=== PATIENT | female | born 1990 | race Caucasian/White ===

== ENCOUNTER 2016-09-10 18:45 | Emergency (ER) | payer OTHER ==
[2016-09-10 18:51] VITALS: BMI 35.7
[2016-09-10 18:54] VITALS: TEMP 98.4
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
[2016-09-10 19:52] VITALS: BP 124/80; PULSE 70; RESP 16; O2SAT 99
== END 2016-09-10 19:50 | disposition home or self-care (01) ==
LOC: ED 18:45
DX: M79.602 Pain in left arm (principal)
CPT/HCPCS: 96372; 99285; J1885

== ENCOUNTER 2017-10-13 15:11 | Emergency (ER) | payer OTHER ==
[2017-10-13 15:11] VITALS: BMI 35.7
--- NOTE | 2017-10-13 16:43 | ED PDOC ---
Arrival/HPI - General Chief Complaint: Female Genitourinary Time Seen by Provider: 10/13/17 16:20 Historian: Patient - History of Present Illness Narrative History of Present Illness (Text): 10/13/17 16:39 19-year-old female presents today with dysuria and urinary frequency with occasional hematuria. Patient denies fevers or chills. She denies nausea vomiting diarrhea or constipation. She denies any back pain. She is complaining of suprapubic pressure with the urge to urinate. She denies abdominal pain. Patient states she's a history of urinary tract infections and has been taking cranberry juice and AZO with minimal improvement. no vaginal bleeding or discharge. Symptom Onset: Gradual Symptom Course: Worsening Quality: Aching, Pressure, Burning Severity Level: Mild Past Medical History - Provider Review Nursing Documentation Reviewed: Yes - Travel History Have you recently traveled outside [place] w/in the past 3 mons?: No - Tetanus Immunization Tetanus Immunization: Unknown - Endocrine/Metabolic Hx Endocrine Disorders: Yes (pre-diabetic) - Genitourinary/Gynecological Hx Genitourinary Disorders: Yes Hx Urinary Tract Infection: Yes - Psychiatric Hx Substance Use: No - Surgical History Hx Abdominal Aortic Aneurysm Repair: No - Anesthesia Hx Anesthesia: No Family/Social History - Physician Review Nursing Documentation Reviewed: Yes Family/Social History: Unknown Family HX Smoking Status: Current Some Days Smoker Hx Alcohol Use: Yes Frequency of alcohol use: Socially Hx Substance Use: No Allergies/Home Meds Allergies/Adverse Reactions: Allergies No Known Allergies Allergy (Verified 10/13/17 16:17) Home Medications: Home Meds Medication Instructions Recorded Confirmed Norgestimate-Ethinyl Estradiol 1 tab PO DAILY 09/10/16 09/10/16 [Tri-Sprintec 28 35 Mcg-0.25 mg] Review of Systems - Review of Systems Constitutional: absent: Fatigue, Fevers Respiratory: absent: SOB, Cough Cardiovascular: absent: Chest Pain, Palpitations Gastrointestinal: absent: Abdominal Pain, Constipation, Diarrhea, Nausea, Vomiting Genitourinary Female: Dysuria, Frequency, Hematuria. absent: Vaginal Bleeding, Vaginal Discharge Musculoskeletal: absent: Arthralgias, Back Pain, Neck Pain Skin: absent: Rash, Pruritis Neurological: absent: Headache, Dizziness Psychiatric: absent: Anxiety, Depression Physical Exam Vital Signs Reviewed: Yes Vital Signs Temp Pulse Resp BP Pulse Ox 10/13/17 15:11 98.2 F 70 18 128/78 100 Temperature: Afebrile Blood Pressure: Normal Pulse: Regular Respiratory Rate: Normal Appearance: Positive for: Well-Appearing, Non-Toxic, Comfortable Pain Distress: None Mental Status: Positive for: Alert and Oriented X 3 - Systems Exam Head: Present: Atraumatic Mouth: Present: Moist Mucous Membranes Respiratory/Chest: Present: Clear to Auscultation Cardiovascular: Present: Regular Rate and Rhythm Abdomen: Present: Normal Bowel Sounds. No: Tenderness, Distention, Peritoneal Signs, Rebound, Guarding Back: Present: Normal Inspection. No: CVA Tenderness, Midline Tenderness, Paraspinal Tenderness Upper Extremity: Present: Normal ROM Lower Extremity: Present: Normal ROM Neurological: Present: GCS=15, Speech Normal Skin: Present: Warm, Dry, Normal Color Psychiatric: Present: Alert, Oriented x 3 Medical Decision Making ED Course and Treatment: 10/13/17 16:38 Patient is nontoxic well-appearing in no distress with stable vital signs Urinalysis: + leukocytes, + bacteria Urine culture: pending keflex and pyridium given pO advised follow up with the primary care physician within the next 2 days. advised immediate return if symptoms worsen,persist or if new symptoms develop. Patient verbalizes understanding of discharge instructions and need for immediate followup. all aspects of this case were discussed the attending of record. Impression: Urinary tract infection Motrin every 6 hours as needed for pain Keflex; 1 capsule twice daily x 7 days Pyridium one tablet twice daily x3 days Followup with primary care physician within the next 2 days Follow up with the urologist for the next 2 days Return if symptoms worsen persist or if new symptoms develop - Lab Interpretations Lab Results: Lab Results 10/13/17 16:24: Urine Color Yellow, Urine Appearance Sl cloudy, Urine pH 6.0, Ur Specific [place] <= 1.005, Urine Protein Negative, Urine Glucose (UA) Negative, Urine Ketones Negative, Urine Blood Small H, Urine Nitrate Negative, Urine Bilirubin Negative, Urine Urobilinogen 0.2, Ur Leukocyte Esterase Large H , Urine RBC Pending, Urine WBC Pending Disposition/Present on Arrival - Present on Arrival Any Indicators Present on Arrival: No History of DVT/PE: No History of Uncontrolled Diabetes: No Urinary Catheter: No History of Decub. Ulcer: No History Surgical Site Infection Following: None - Disposition Have Diagnosis and Disposition been Completed?: Yes Diagnosis: Urinary tract infection Disposition: HOME/ ROUTINE Disposition Time: 16:37 Patient Plan: Discharge Patient Problems: Current Active Problems Problem Status Onset Urinary tract infection Acute Condition: GOOD Discharge Instructions (ExitCare): Urinary Tract Infections in Adults Additional Instructions: Motrin every 6 hours as needed for pain Keflex; 1 capsule twice daily x 7 days Pyridium one tablet twice daily x3 days Followup with primary care physician within the next 2 days Follow up with the urologist for the next 2 days Return if symptoms worsen persist or if new symptoms develop Prescriptions: Cephalexin [Keflex] 500 mg PO BID #14 capsule Ibuprofen [Motrin] 600 mg PO Q6H PRN #20 tab PRN Reason: pain/fever reduction Phenazopyridine [Phenazopyridine HCl] 200 mg PO BID #6 tab Referrals: Marilu Tellez MD [Primary Care Provider] - Follow up with primary Bienvenido Nagel MD [Staff Provider] - Follow up with primary Forms: [email or web address] ([place]), WORK NOTE
[2017-10-13 16:59] LABS: URINE BILIRUBIN NEGATIVE (NEGATIVE); URINE BLOOD SMALL (NEGATIVE); URINE GLUCOSE (UA) NEGATIVE (NEGATIVE); URINE LEUKOCYTE ESTERASE LARGE Leu/uL (NEGATIVE); URINE PROTEIN NEGATIVE mg/dL (<30 mg/dL); URINE UROBILINOGEN 0.2 E.U./dL (<1 E.U./dL)
[2017-10-13 17:02] LABS: URINE APPEARANCE SL CLOUDY (CLEAR); URINE COLOR YELLOW (YELLOW)
[2017-10-13 17:16] VITALS: RESP 18; TEMP 98.2
[2017-10-13 17:39] LABS: URINE BACTERIA MOD (NEG); URINE WBC TNTC /hpf (0-6)
[2017-10-13 18:04] VITALS: BP 129/70; PULSE 77; O2SAT 99
== END 2017-10-13 18:00 | disposition home or self-care (01) ==
LOC: ED 15:11
DX: N39.0 Urinary tract infection, site not specified (principal); R73.03 Prediabetes